=== PATIENT | male | born 1960 | race Caucasian/White ===

== ENCOUNTER 2016-12-18 05:15 | Day surgery (SDC) | payer OTHER ==
[2016-12-17 10:44] VITALS: BMI 32.0
[~2016-12-18] VITALS: Ht 180.3 cm; Wt 103.4 kg
[2016-12-18] VITALS (11 sets, daily range): BP systolic 112–130; BP diastolic 74–87; PULSE 90–105; RESP 14–20; Ht 180.3 cm; Wt 103.4 kg
[~2016-12-18 05:15] MED LIST: ATEN50TA PO; BENA40TA41 PO; CLON0.5T PO
[2016-12-18] MEDS ORDERED: BUPIVACAINE 0.25% (MPF) 30 ML INJ ONE (06:59)
[2016-12-18] MEDS ORDERED: POLYMYXIN/BACITRACIN 1L IRRIG ONE (07:00)
[2016-12-18] MEDS ORDERED: LIDOCAINE 1% (MDV) 20 ML INJ ONE (07:00)
--- NOTE | 2016-12-18 07:28 | HPN ---
Date/Time of Note Date/Time of Note DATE: 12/18/16 TIME: 07:28 Interval H&P Admission Note Pt. seen H&P reviewed: No system changes FLETCHER SHETH MD Dec 18, 2016 07:28
[2016-12-18] MEDS ORDERED: SUCCINYLCHOLINE CHLORIDE 100 MG/5 ML SYG IV ONE (07:34)
[2016-12-18] MEDS ORDERED: FENTAnyl 50 MCG/ML VIAL ONE (07:34)
[2016-12-18] MEDS ORDERED: PROPOFOL 20 ML ONE (07:34)
[2016-12-18] MEDS ORDERED: ATEN50TA PO (07:35)
[2016-12-18] MEDS ORDERED: OMEP40CA6 PO (07:35)
[2016-12-18] MEDS ORDERED: BENA40TA41 PO (07:35)
[2016-12-18] MEDS ORDERED: MIDAZOLAM 1 MG/ML 2 ML INJ ONE (07:35)
[2016-12-18] MEDS ORDERED: ZOLP5TAB PO (07:35)
[2016-12-18] MEDS ORDERED: CEFAZOLIN 1 GM INJ ONE (07:45)
[2016-12-18] MEDS ORDERED: DEXAMETHASONE 4 MG/ML 1 ML INJ ONE (07:48)
[2016-12-18] MEDS ORDERED: METOCLOPRAMIDE 10 MG INJ ONE (07:48)
[2016-12-18] MEDS ORDERED: ONDANSETRON 4 MG INJ ONE (07:48)
[2016-12-18] MEDS ORDERED: FAMOTIDINE 20 MG INJ ONE (07:48)
[2016-12-18] MEDS ORDERED: ROCURONIUM 50 MG INJ ONE (07:52)
[2016-12-18] MEDS ORDERED: ROPIVACAINE 0.2% 20 ML VIAL ONE ×2 (07:54→07:57)
[2016-12-18] MEDS ORDERED: PHENYLephrine (100 MCG/ML) 5ML SYG ONE (07:57)
[2016-12-18] MEDS ORDERED: SUGAMMADEX SODIUM 200 MG/2 ML VIAL IV ONE (08:16)
[2016-12-18] MEDS ORDERED: morphine 2 MG INJ IV PRN (08:30)
[2016-12-18] MEDS ORDERED: ONDANSETRON 4 MG INJ IV PRN ×2 (08:30→09:00)
[2016-12-18] MEDS ORDERED: OXYCODONE/ACETAMINOPHEN (5/325) TAB PO PRN ×2 (08:30)
--- NOTE | 2016-12-18 08:36 | OPR ---
Date/Time of Note Date/Time of Note DATE: 12/18/16 TIME: 08:30 Operative Report Procedure Date: Dec 18, 2016 Preoperative Diagnosis Recurrent ventral incisional hernia Postoperative Diagnosis Recurrent ventral incisional hernia without obstruction Operation Performed Repair with medium proceed patch Surgeon: FLETCHER SHETH MD Anesthesia: general Anesthesiologist: PAMELA SANTIAGO DO Estimated Blood Loss: 0 - 10 ml's Specimens Sac Grafts/Implants Medium proceed patch Tubes/Drains None Complications: None Pt Condition Post Procedure: stable Disposition: PACU Indications Symptomatic Operative\Procedure Findings Recurrent ventral incisional hernia without obstruction Procedure Description After satisfactory general anesthesia was achieved, the abdomen was prepped and draped in the usual fashion. A transverse skin ellipse was marked encompassing the transverse incision in the epigastrium. The skin ellipse was scored sharply , excised and discarded. The incision was carried down to subcutaneous tissues were the hernia sac was identified and dissected circumferentially. The sac was excised in piecemeal fashion with electrocautery showing a clean fascial defect to the right of the previously placed mesh which was intact. The fascial defect measured 3 cm. A medium proceed patch was placed below the fascial defect as an underlay. It was attached to healthy fascia via its mesh straps utilizing interrupted 0 Novafil suture. Redundant mesh straps were excised and discarded. The resultant repair was a tension-free underlay repair. The wound was infiltrated with 20 cc of 0.25% plain Marcaine. The subcu was closed with interrupted 3-0 Vicryl sutures and subcuticular absorbable debbie. The skin was closed with a 3-0 subcuticular Vicryl suture. Sponge and needle counts were reported as correct 2. FLETCHER SHETH MD Dec 18, 2016 08:36
[2016-12-18 08:52] LABS: ADD UMIC NO; UR ASCORBIC ACID NEGATIVE (NEGATIVE); UR BILIRUBIN (Dip) NEGATIVE (NEGATIVE); UR BLOOD (Dip) NEGATIVE (NEGATIVE); UR CLARITY CLEAR (CLEAR); UR COLOR STRAW (YELLOW); UR GLUCOSE (Dip) NEGATIVE (NEGATIVE); UR KETONES (Dip) NEGATIVE (NEGATIVE); UR LEUKOCYTE ESTERASE (Dip) NEGATIVE Leu/ul (NEGATIVE); UR NITRITE (Dip) NEGATIVE (NEGATIVE); UR SPECIFIC GRAVITY (Dip) 1.004 (1.003-1.030); UR TOTAL PROTEIN (Dip) NEGATIVE (NEGATIVE); UR UROBILINOGEN (Dip) NEGATIVE (NEGATIVE)
[2016-12-18] MEDS ORDERED: DIPHENHYDRAMINE 50 MG INJ IV PRN (09:00)
[2016-12-18] MEDS ORDERED: KETOROLAC 30 MG INJ IV ONE (09:00)
[2016-12-18] MEDS ORDERED: MEPERIDINE 25 MG INJ IV PRN (09:00)
[2016-12-18] MEDS ORDERED: HYDROmorphONE (0.2 MG/ML) 10ML SYG IV PRN ×2 (09:00)
== END 2016-12-18 10:15 | disposition home or self-care (01) ==
LOC: SDS 05:15
PROVIDERS: ATTEND Surgery
DX: K43.2 Incisional hernia without obstruction or gangrene (principal); E66.9 Obesity, unspecified; Z68.31 Body mass index [BMI] 31.0-31.9, adult
CPT/HCPCS: 49565; 49568; 81003; 88302; C1781; J0690; J1100; J2250; J2405; J2795; J3010; J7999; Z7512; Z7610; J2370; J2765